=== PATIENT | female | born 1985 | race African-American/Black ===

== ENCOUNTER 2016-06-20 16:20 | Inpatient (IN) | payer OTHER ==
[~2016-06-20] VITALS: Ht 165.1 cm; Wt 104.3 kg
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
[~2016-06-20 16:20] MED LIST: COUMADIN 5 MG TA5 M1 PO; ENOXAPARIN100 MG/11 SUBQ; GLUCOPHAGE500 MG PO; KEFLEX500 MG PO; NORCO 5-325 TA1 EACH PO; ONDANSETRON HCL4 M2 PO; ZOFRAN ODT8 MG PO
[2016-06-20 16:22] VITALS: BP 132/85
[2016-06-20] MEDS ORDERED: KEFLEX500 MG PO (16:38)
[2016-06-20] MEDS ORDERED: VITAMIN B-1100 M1 PO (16:39)
[2016-06-20] MEDS ORDERED: TOPAMAX 25 MG T25 M1 PO (16:39)
[2016-06-20] MEDS ORDERED: FOLIC ACID1 MG PO (16:39)
[2016-06-20] MEDS ORDERED: CARAFATE 1 GM TA1 GM PO (16:40)
[2016-06-20] MEDS ORDERED: FLAGYL500 MG PO (16:40)
[2016-06-20 17:13] LABS: ABSOLUTE NEUTROPHILS 5.8 thou/uL (1.4-8.2); BASOPHILS 1.2 % (0.0-2.0); EOSINOPHILS 1.9 % (0.0-3.0); HEMATOCRIT 36.1 % (37.0-47.0); LYMPHOCYTES 27.5 % (24.0-44.0); MCH 29.5 pg (26.0-34.0); MCHC 33.2 % (28.0-37.0); MCV 88.9 fL (80.0-100.0); MONOCYTES 5.5 % (1.0-8.0); PLATELET COUNT 464 thou/uL (150-400); POLYS 63.9 % (36.0-66.0); RBC 4.06 mil/uL (4.20-5.00); RDW 13.4 % (10.5-14.5); WBC 9.1 thou/uL (4.0-11.0)
[2016-06-20 17:14] LABS: MANUAL DIFF NO
[2016-06-20 17:21] LABS: CALCIUM 9.1 mg/dL (8.5-10.1); CREATININE 1.1 mg/dL (0.6-1.3); POTASSIUM 3.8 mmol/L (3.5-5.1)
[2016-06-20 17:27] LABS: TOTAL BILIRUBIN 0.3 mg/dL (<0.1-1.0); TOTAL PROTEIN 7.8 g/dL (6.4-8.2)
[2016-06-20 17:33] LABS: APTT 22.8 Seconds (24.5-32.8); PROTIME 10.4 Seconds (9.3-11.4)
[2016-06-20 20:44] VITALS: BP 110/75
[2016-06-20 21:20] VITALS: BP 111/68
[2016-06-21 04:20] VITALS: BP 138/73
[2016-06-21 08:35] VITALS: BP 133/73
[2016-06-21 11:42] LABS: CSF GLUCOSE 152 mg/dL (40-70)
[2016-06-21 11:51] LABS: CSF COLOR COLORLESS; NUMBER OF TUBES 4; VOLUME 12 ml
[2016-06-21 11:52] LABS: CSF CLARITY CLEAR; CSF WBC 1 /mm3 (0-10)
[2016-06-21 17:55] VITALS: BP 148/94
[2016-06-21 20:13] VITALS: BP 121/72
[2016-06-22 04:04] VITALS: BP 125/68
[2016-06-22 05:37] LABS: BASOPHILS 0.3 % (0.0-2.0); EOSINOPHILS 1.1 % (0.0-3.0); HEMATOCRIT 31.6 % (37.0-47.0); HEMOGLOBIN 10.4 gm/dL (12.0-15.0); LYMPHOCYTES 33.2 % (24.0-44.0); MCH 29.2 pg (26.0-34.0); MCHC 32.8 % (28.0-37.0); MCV 88.9 fL (80.0-100.0); MONOCYTES 5.4 % (1.0-8.0); RBC 3.55 mil/uL (4.20-5.00); RDW 13.6 % (10.5-14.5)
[2016-06-22 05:42] LABS: CALCIUM 8.6 mg/dL (8.5-10.1); CREATININE 0.9 mg/dL (0.6-1.3); MAGNESIUM 1.6 mg/dL (1.8-2.4); POTASSIUM 3.9 mmol/L (3.5-5.1)
[2016-06-22 05:46] LABS: PLATELET COUNT 389 thou/uL (150-400)
[2016-06-22 05:47] LABS: MANUAL DIFF NO
[2016-06-22 08:13] VITALS: BP 129/85
[2016-06-22] MEDS ORDERED: ENOXAPARIN100 MG/11 SUBQ ×2 (10:08→11:15)
[2016-06-22] MEDS ORDERED: COUMADIN 4 MG TA4 M1 PO (11:12)
[2016-06-22] MEDS ORDERED: TOPIRAMATE50 MG PO (11:12)
[2016-06-22] MEDS ORDERED: TYLENOL325 MG PO (11:16)
[2016-06-22 11:31] VITALS: BP 129/85
[2016-08-02] MEDS ORDERED: COUMADIN 5 MG TA5 M1 PO (07:37)
[2016-08-07] MEDS ORDERED: ENOXAPARIN120 MG/0.1 SUBQ ×2 (10:14→10:16)
[2016-08-07] MEDS ORDERED: HYDROCODON-ACE1 EAC7 PO (10:14)
[2016-08-07] MEDS ORDERED: AUGMENTIN 875875 MG PO (10:14)
[2016-08-07] MEDS ORDERED: COUMADIN 5 MG TA5 M1 PO (10:14)
[2016-08-07] MEDS ORDERED: LANTUSSOLASTAR SUBQ (10:14)
== END 2016-06-22 16:00 | disposition home or self-care (01) | DRG 102 ==
LOC: ER 16:20 → EROBS 20:02 → 3N 20:45
PROVIDERS: Emergency Medicine; Internal Medicine
PROC: 009U3ZX Drainage of Spinal Canal, Percutaneous Approach, Diagnostic (ICD-10-PCS; principal; 2016-06-22)
PROC: B01B1ZZ Fluoroscopy of Spinal Cord using Low Osmolar Contrast (ICD-10-PCS; principal; 2016-06-22)
DX: R51 Headache (principal); G08 Intracranial and intraspinal phlebitis and thrombophlebitis; N39.0 Urinary tract infection, site not specified; E11.9 Type 2 diabetes mellitus without complications; F12.10 Cannabis abuse, uncomplicated; F14.10 Cocaine abuse, uncomplicated; F17.210 Nicotine dependence, cigarettes, uncomplicated; Z79.4 Long term (current) use of insulin; Z86.14 Personal history of Methicillin resistant Staphylococcus aureus infection; Z98.890 Other specified postprocedural states; Z79.899 Other long term (current) drug therapy; Z83.3 Family history of diabetes mellitus; Z82.3 Family history of stroke; Z91.14 Patient's other noncompliance with medication regimen
CPT/HCPCS: 10094

== ENCOUNTER 2016-10-31 11:38 | Emergency (ER) | payer OTHER ==
[~2016-10-31] VITALS: Ht 165.1 cm; Wt 104.3 kg
[~2016-10-31 11:38] MED LIST changes: +AUGMENTIN 875875 MG PO; +CARAFATE 1 GM TA1 GM PO; +COUMADIN 4 MG TA4 M1 PO; +ENOXAPARIN120 MG/0.1 SUBQ; +FLAGYL500 MG PO; +FOLIC ACID1 MG PO; +HYDROCODON-ACE1 EAC7 PO; +LANTUSSOLASTAR SUBQ; +TOPAMAX 25 MG T25 M1 PO; +TOPIRAMATE50 MG PO; +TYLENOL325 MG PO; +VITAMIN B-1100 M1 PO
[2016-10-31 13:36] LABS: ABSOLUTE NEUTROPHILS 5.3 thou/uL (1.4-8.2); BASOPHILS 0.6 % (0.0-2.0); EOSINOPHILS 3.7 % (0.0-3.0); HEMATOCRIT 38.4 % (37.0-47.0); HEMOGLOBIN 12.6 gm/dL (12.0-15.0); LYMPHOCYTES 30.1 % (24.0-44.0); MCH 29.8 pg (26.0-34.0); MCHC 32.9 g/dL (28.0-37.0); MCV 90.6 fL (80.0-100.0); MONOCYTES 5.2 % (1.0-8.0); PLATELET COUNT 411 thou/uL (150-400); POLYS 60.4 % (36.0-66.0); RBC 4.24 mil/uL (4.20-5.00); WBC 8.8 thou/uL (4.0-11.0)
[2016-10-31 13:40] LABS: MANUAL DIFF NO
[2016-10-31 14:22] LABS: INR 1.5; PROTIME 15.1 Seconds (9.3-11.4)
[2016-10-31 14:35] LABS: CALCIUM 8.6 mg/dL (8.5-10.1); CREATININE 0.8 mg/dL (0.6-1.0); POTASSIUM 4.4 mmol/L (3.5-5.1)
[2016-10-31] MEDS ORDERED: NORCO 5-325 TA1 EACH PO (14:41)
== END 2016-10-31 15:29 | disposition home or self-care (01) ==
LOC: ER 11:38
PROVIDERS: Emergency Medicine
DX: R51 Headache (principal); Z79.01 Long term (current) use of anticoagulants; J45.909 Unspecified asthma, uncomplicated; F17.210 Nicotine dependence, cigarettes, uncomplicated; Z86.718 Personal history of other venous thrombosis and embolism

== ENCOUNTER 2017-02-07 03:42 | Emergency (ER) | payer OTHER ==
[~2017-02-07] VITALS: Ht 165.1 cm; Wt 99.8 kg
[2017-02-07] MEDS ORDERED: LEVEMIR SUBQ (04:11)
[2017-02-07 05:02] LABS: ABSOLUTE NEUTROPHILS 5.7 thou/uL (1.4-8.2); BASOPHILS 0.9 % (0.0-2.0); EOSINOPHILS 2.4 % (0.0-3.0); HEMATOCRIT 34.1 % (37.0-47.0); HEMOGLOBIN 11.5 gm/dL (12.0-15.0); LYMPHOCYTES 24.9 % (24.0-44.0); MCH 30.7 pg (26.0-34.0); MCHC 33.8 g/dL (28.0-37.0); MCV 90.9 fL (80.0-100.0); MONOCYTES 4.4 % (1.0-8.0); PLATELET COUNT 355 thou/uL (150-400); POLYS 67.4 % (36.0-66.0); RBC 3.76 mil/uL (4.20-5.00); RDW 14.2 % (10.5-14.5); WBC 8.5 thou/uL (4.0-11.0)
[2017-02-07 05:04] LABS: MANUAL DIFF NO
[2017-02-07 05:16] LABS: APTT 23.6 Seconds (24.5-32.8); PROTIME 9.8 Seconds (9.3-11.4)
[2017-02-07 05:18] LABS: CALCIUM 8.7 mg/dL (8.5-10.1); CREATININE 1.2 mg/dL (0.6-1.0); POTASSIUM 3.8 mmol/L (3.5-5.1)
[2017-02-07] MEDS ORDERED: IBUPROFEN 600600 M1 PO (07:24)
== END 2017-02-07 07:40 | disposition home or self-care (01) ==
LOC: ER 03:42
PROVIDERS: Emergency Medicine
DX: I80.9 Phlebitis and thrombophlebitis of unspecified site (principal); J45.909 Unspecified asthma, uncomplicated; F17.210 Nicotine dependence, cigarettes, uncomplicated; F10.99 Alcohol use, unspecified with unspecified alcohol-induced disorder

== ENCOUNTER 2017-12-29 14:57 | Emergency (ER) | payer OTHER ==
[~2017-12-29] VITALS: Ht 165.1 cm; Wt 102.1 kg
--- NOTE | ~2017-12-29 | EKG ---
[place] [address] [facility] [place] [address] ELECTROCARDIOGRAM REPORT Name: RICHARDNOEL [facility] [id number] Admission: 12/29/17 Attend Phys: Discharge: 12/29/17 Date of : 89 Report #: [id number] THIS REPORT FOR: //name// [facility] ED Test Date: 2017-12-29 Test Time: 15:39:52 Pat Name: NOEL RAMOS Department: Room: Gender: F Motel Manager: PARESH : 1985 Requested By: Gerson Rice Order Number: [id number] MD: Gerber Avila Measurements Intervals [place] Rate: 50 P: 48 CT: 141 QRS: 51 QRSD: 88 T: 66 QT: 484 QTc: 442 Interpretive Statements Sinus bradycardia Otherwise no significant abnormality Compared to ECG 06/11/2016 20:10:35 T-wave abnormality no longer present Electronically Signed On 12-30-2017 8:41:24 CDT by Gerber Avila [email or web address] <ELECTRONICALLY SIGNED> By: Gerber Avila MD, [facility] WITH [facility] 12/30/17 0841 [id number] Gerber Avila MD, FACC /EPI
[~2017-12-29 14:57] MED LIST changes: +IBUPROFEN 600600 M1 PO; +LEVEMIR SUBQ
[2017-12-29 16:12] LABS: EOSINOPHILS 2.8 % (0.0-3.0); HEMOGLOBIN 12.5 gm/dL (12.0-15.0); LYMPHOCYTES 30.9 % (24.0-44.0); MCH 30.3 pg (26.0-34.0); MCHC 32.9 g/dL (28.0-37.0); MCV 92.2 fL (80.0-100.0); PLATELET COUNT 353 thou/uL (150-400); POLYS 60.3 % (36.0-66.0); RBC 4.12 mil/uL (4.20-5.00); RDW 13.3 % (10.5-14.5); WBC 8.3 thou/uL (4.0-11.0)
[2017-12-29 16:20] LABS: CALCIUM 8.9 mg/dL (8.5-10.1); CREATININE 1.1 mg/dL (0.6-1.0); POTASSIUM 3.8 mmol/L (3.5-5.1)
[2017-12-29 17:04] LABS: URINE BILIRUBIN NEGATIVE (Negative); URINE BLOOD 3+ (Negative); URINE CLARITY SL CLOUDY; URINE COLOR YELLOW; URINE GLUCOSE-RANDOM* NEGATIVE (Negative); URINE KETONES NEGATIVE (Negative); URINE LEUKOCYTES-REFLEX NEGATIVE (Negative); URINE NITRITE-REFLEX NEGATIVE (Negative); URINE PROTEIN (DIPSTICK) TRACE (Negative); URINE SPECIFIC GRAVITY >= 1.030 (1.005-1.035); URINE UROBILINOGEN 0.2 E.U./dl (0.2-1.0)
[2017-12-29 17:11] LABS: CASTS None Seen /LPF (None Seen); URIC ACID CRYSTALS 0-3 Few /LPF (None Seen); URINE WBC-REFLEX None Seen /HPF (0-5)
[2017-12-29] MEDS ORDERED: BACTRIM DS TAB1 EACH PO (17:11)
[2017-12-29 17:12] LABS: BACTERIA-REFLEX 1-9 Few /HPF (None Seen); SQUAMOUS 4-10 Moderate /LPF (0-3); URINE RBC >20 Many /HPF (0-2); YEAST-REFLEX Present (None Seen)
== END 2017-12-29 17:32 | disposition home or self-care (01) ==
LOC: ER 14:57
PROVIDERS: Physician Assistant
DX: H61.22 Impacted cerumen, left ear (principal); L02.211 Cutaneous abscess of abdominal wall; R42 Dizziness and giddiness; J45.909 Unspecified asthma, uncomplicated; F17.210 Nicotine dependence, cigarettes, uncomplicated

== ENCOUNTER 2018-08-07 12:38 | Emergency (ER) | payer OTHER ==
[~2018-08-07] VITALS: Ht 177.8 cm; Wt 117.9 kg
[~2018-08-07 12:38] MED LIST changes: +BACTRIM DS TAB1 EACH PO
[2018-08-07 14:45] LABS: URINE BILIRUBIN NEGATIVE (Negative); URINE BLOOD TRACE (Negative); URINE CLARITY CLEAR; URINE COLOR YELLOW; URINE GLUCOSE-RANDOM* 3+ (Negative); URINE KETONES NEGATIVE (Negative); URINE LEUKOCYTES-REFLEX NEGATIVE (Negative); URINE NITRITE-REFLEX NEGATIVE (Negative); URINE PROTEIN (DIPSTICK) NEGATIVE (Negative); URINE SPECIFIC GRAVITY 1.025 (1.005-1.035); URINE UROBILINOGEN 0.2 E.U./dl (0.2-1.0)
[2018-08-07 15:43] LABS: BE(vivo) -0.7 mmol/L (-2 to +3); HCO3 23.9 mmol/L (22.0-26.0); PCO2 VENOUS 39.3 mmHg (41.0-51.0); PO2 VENOUS 46.6 mmHg (35.0-45.0)
[2018-08-07 15:47] LABS: ABSOLUTE NEUTROPHILS 7.2 thou/uL (1.4-8.2); BASOPHILS 0.7 % (0.0-2.0); EOSINOPHILS 2.1 % (0.0-3.0); HEMATOCRIT 40.4 % (37.0-47.0); HEMOGLOBIN 13.6 gm/dL (12.0-15.0); MCH 30.6 pg (26.0-34.0); MCHC 33.6 g/dL (28.0-37.0); MONOCYTES 4.3 % (1.0-8.0); PLATELET COUNT 300 thou/uL (150-400); POLYS 67.9 % (36.0-66.0); RBC 4.44 mil/uL (4.20-5.00); RDW 13.1 % (10.5-14.5); WBC 10.6 thou/uL (4.0-11.0)
[2018-08-07 15:54] LABS: CREATININE 1.1 mg/dL (0.6-1.0); POTASSIUM 4.1 mmol/L (3.5-5.1)
[2018-08-07 15:59] LABS: ALBUMIN 3.2 g/dL (3.4-5.0); TOTAL BILIRUBIN 0.2 mg/dL (<0.1-1.0); TOTAL PROTEIN 7.3 g/dL (6.4-8.2)
[2018-08-07] MEDS ORDERED: NORFLEX100 MG PO (17:05)
[2018-08-07] MEDS ORDERED: NAPROSYN500 MG PO (17:05)
[2018-08-07] MEDS ORDERED: INSULIN SYRING1 EA10 INJECTION (17:49)
[2018-08-07] MEDS ORDERED: LANCETS1 EAC1 MISCELL (17:49)
[2018-08-07 18:14] VITALS: BP 120/74
== END 2018-08-07 18:51 | disposition home or self-care (01) ==
LOC: ER 12:38
PROVIDERS: Physician Assistant
DX: G44.209 Tension-type headache, unspecified, not intractable (principal); E11.65 Type 2 diabetes mellitus with hyperglycemia; E86.0 Dehydration; Z91.19 Patient's noncompliance with other medical treatment and regimen; F17.210 Nicotine dependence, cigarettes, uncomplicated; J45.909 Unspecified asthma, uncomplicated; Z79.4 Long term (current) use of insulin; Z90.10 Acquired absence of unspecified breast and nipple

== ENCOUNTER 2018-08-19 16:35 | Emergency (ER) | payer OTHER ==
[~2018-08-19] VITALS: Ht 165.1 cm; Wt 113.4 kg
[~2018-08-19 16:35] MED LIST changes: +INSULIN SYRING1 EA10 INJECTION; +LANCETS1 EAC1 MISCELL; +NAPROSYN500 MG PO; +NORFLEX100 MG PO
[2018-08-19 17:27] VITALS: BP 154/102
== END 2018-08-19 18:42 | disposition left against medical advice (07) ==
LOC: ER 16:35
DX: Z53.21 Procedure and treatment not carried out due to patient leaving prior to being seen by health care provider (principal)

== ENCOUNTER 2018-09-05 13:51 | Emergency (ER) | payer OTHER ==
[~2018-09-05] VITALS: Ht 165.1 cm; Wt 108.9 kg
[2018-09-05] MEDS ORDERED: METFORMIN HCL500 MG PO (13:58)
[2018-09-05] MEDS ORDERED: KEFLEX500 M1 PO (16:41)
[2018-09-05] MEDS ORDERED: HYDROCODONE-AP1 EAC6 PO (16:41)
[2018-09-05 17:53] VITALS: BP 183/109
== END 2018-09-05 17:35 | disposition home or self-care (01) ==
LOC: ER 13:51
DX: L02.211 Cutaneous abscess of abdominal wall (principal); E11.9 Type 2 diabetes mellitus without complications; J45.909 Unspecified asthma, uncomplicated; F17.210 Nicotine dependence, cigarettes, uncomplicated; Z79.4 Long term (current) use of insulin

== ENCOUNTER 2019-01-05 04:44 | Emergency (ER) | payer OTHER ==
[~2019-01-05] VITALS: Ht 165.1 cm; Wt 108.9 kg
[~2019-01-05 04:44] MED LIST changes: +HYDROCODONE-AP1 EAC6 PO; +KEFLEX500 M1 PO; +METFORMIN HCL500 MG PO
[2019-01-05 05:46] VITALS: BP 163/104
[2019-01-05] MEDS ORDERED: MOBIC15 MG PO (05:54)
[2019-01-05] MEDS ORDERED: BACTRIM DS TAB1 EACH PO (05:54)
== END 2019-01-05 06:00 | disposition home or self-care (01) ==
LOC: ER 04:44
DX: L73.2 Hidradenitis suppurativa (principal); F17.210 Nicotine dependence, cigarettes, uncomplicated; J45.909 Unspecified asthma, uncomplicated; Z90.10 Acquired absence of unspecified breast and nipple